=== PATIENT | female | born 1950 | race Caucasian/White ===

== ENCOUNTER 2016-10-22 15:56 | Outpatient (CLI) ==
[2016-10-22 16:24] LABS: H. PYLORI STOOL ANTIGEN NEGATIVE (NEGATIVE); H.PYLORI STOOL AG INTERNAL QC INTERNAL QC VALID
== END 2016-10-22 15:57 | disposition home or self-care (01) ==
LOC: LAB 15:56
PROVIDERS: ATTEND Internal Medicine
DX: R10.9 Unspecified abdominal pain (principal); R63.4 Abnormal weight loss; Z86.19 Personal history of other infectious and parasitic diseases
CPT/HCPCS: 87338; 87493

== ENCOUNTER 2018-04-08 08:28 | Outpatient (CLI) | payer OTHER ==
--- NOTE | 2018-04-08 09:29 | CT ---
EXAM: CT of the head without contrast History: Dizziness and blurred vision. Technique: Multiplanar CT images through the head were obtained without the administration of IV con trast Findings: The visualized paranasal sinuses and mastoid air cells are clear in general. No acute kimberly varial abnormalities. Intracranially, there is mild diffuse cerebral atrophy. No dominant mass or midline shift. No hydro cephalous. No acute intracranial hemorrhage or abnormal extraaxial fluid collections. Periventricul ar and subcortical white matter hypodensities. Impression: 1. No acute intracranial process. 2. Mild atrophy and mild chronic small vessel ischemic disease.
--- NOTE | 2018-04-08 09:30 | US ---
EXAM: Ultrasound bilateral carotid duplex. HISTORY: Dizziness. Blurred vision. COMPARISON: None available. TECHNIQUE: Multiple whitt scale and color Doppler images were obtained. FINDINGS: Please note that estimates of internal carotid artery stenoses are based upon NASCET crite linda. Right carotid: Calcified plaquing without 50% or greater stenosis. Peak systolic velocity measureme nt in the right internal carotid artery is 1.0 meters per second. Right internal to common carotid a rtery peak systolic velocity ratio measures 1.6. End diastolic velocity measurement in the right int ernal carotid artery is 0.3 meters per second. Flow in the right vertebral artery is antegrade. Left carotid: Calcified plaquing without 50% or greater stenosis. Peak systolic velocity measuremen t in the left internal carotid artery is 1.2 meters per second. Left internal to common carotid sharla ry peak systolic velocity ratio measures 1.7. End diastolic velocity measurement in the left interna l carotid artery measures 0.3 meters per second. Flow in the left vertebral artery is antegrade. IMPRESSION: 1. No evidence for 50% or greater stenosis in the right or left internal carotid artery. 2. Antegrade flow in both vertebral arteries.
== END 2018-04-08 08:29 | disposition home or self-care (01) ==
LOC: RAD 08:28
PROVIDERS: ATTEND Internal Medicine
DX: R42 Dizziness and giddiness (principal); H53.8 Other visual disturbances

== ENCOUNTER 2019-03-11 11:22 | Outpatient (CLI) ==
--- NOTE | 2019-03-11 16:11 | CT ---
EXAM: CT of the abdomen pelvis with and without contrast History: Upper abdominal pain. Technique: Multiplanar CT images through the abdomen and pelvis were obtained with and without the a dministration of IV contrast Findings: Lung bases are clear. No acute osseous abnormalities. Atherosclerotic vascular calcifications. No renal stones and no hydronephrosis. No ureteral calculi . Possible cholelithiasis. Calcified granulomas within the spleen. A few hepatic cysts with the la rgest measuring 2.7 cm in the inferior right hepatic lobe. Pancreas is unremarkable. Atheroscleroti c vascular calcifications. Adrenal glands are within normal limits. Mobile cecum seen in the right upper quadrant. The appendix is not seen but there are no secondary signs of appendicitis. No renal masses. Moderate colonic stool. Colonic diverticulosis. Mild short segment inflammation involving proximal sigmoid colon with associated wall thickening. No bladder wall thickening. 1.5 cm calcifi ed uterine fibroid. No perirectal inflammation. No free air and no ascites. No abdominal aortic an eurysm. No pathologically enlarged lymph nodes. Impression: 1. Short segment wall thickening of the proximal sigmoid colon probably due to early diverticulitis. Neoplastic wall thickening cannot be excluded and a colonoscopy will be needed. 2. Simple hepatic cysts. 3. Small calcified uterine fibroid.
== END 2019-03-11 11:23 | disposition home or self-care (01) ==
LOC: RAD 11:22
PROVIDERS: ATTEND Internal Medicine
DX: R10.13 Epigastric pain (principal)
CPT/HCPCS: 36415; 82565

== ENCOUNTER 2019-03-16 14:35 | Emergency (ER) ==
[2019-03-16 14:43] VITALS: BP 136/65; TEMP 97.2; BMI 25.0
[2019-03-16] MEDS ORDERED: SODIUM CHLORIDE 1,000 ML IV STA (15:18)
--- NOTE | 2019-03-16 16:35 | ED.PDOC ---
General ED Provider: Dr. LANDY LO Chief Complaint: Abdominal Pain Stated Complaint: ABDOMINAL PAIN EPIGASTRIC . WAS SEEN AT THE EMERGENCY ROOM 1 DAY AGO , THE PAIN HAS NOT IMPROVED . NEGATIVE VOMITING Time Seen by Physician: 14:45 (SEEN WITH NURSE 1 DAY AGO) Information Source: Patient Exam Limitations: No limitations Primary Care Provider: ODALYS CHENG Nursing and Triage Documentation Reviewed and Agree: Yes Does patient meet sepsis criteria?: No System Inflammatory Response Syndrome: Not Applicable Sepsis Protocol: For patient's 13 years and over: Temp is 96.8 and below OR 101 and greater Pulse >90 BPM Resp >20/minute Acutely Altered Mental Status Are patient's symptoms suggestive of a new infection, such as: -Pneumonia -Skin, Soft Tissue -Endocarditis -UTI -Bone, Joint Infection -Implantable Device -Acute Abdominal Infection -Wound Infection -Meningitis -Blood Stream Catheter Infection -Unknown GI Complaint Exam - Abdominal Pain Complaint/Exam Onset: Gradual Duration: 2 DAY Symptoms Are: Still present Timing: Intermittent Initial Severity: Moderate Current Severity: Moderate Location of Pain: Epigastric Radiates To: Denies: Chest, Back, Flank, LLQ, RLQ, Inguinal Character: Reports: Aching Aggravating: Reports: None Alleviating: Reports: None Associated Signs and Symptoms: Denies: Diaphoresis, Fever, Cough, Chest pain, Dizziness, Back pain, Constipation, Blood in stool, Dysuria, Urinary frequency, Decreased appetite Review of Systems - Review Of Systems Constitutional: Reports: No symptoms Eyes: Reports: No symptoms Ears, Nose, Mouth, Throat: Reports: No symptoms Respiratory: Reports: No symptoms Cardiac: Reports: No symptoms GI: Reports: Abdominal pain : Reports: No symptoms Musculoskeletal: Reports: No symptoms Skin: Reports: No symptoms Neurological: Reports: No symptoms Endocrine: Reports: No symptoms Hematologic/Lymphatic: Reports: No symptoms All Other Systems: Reviewed and Negative Past Medical History - Past Medical History Previously Healthy: Yes Endocrine: Reports: None Cardiovascular: Reports: None Respiratory: Reports: None Hematological: Reports: None Gastrointestinal: Reports: GERD Genitourinary: Reports: None Neuro/Psych: Reports: None Musculoskeletal: Reports: None Cancer: Reports: None Last Menstrual Period: years ago - Surgical History General Surgical History: Reports: None - Family History Family History: Reports: None - Social History Smoking Status: Never smoker Hx Substance Use: No Alcohol Screening: None - Immunizations Tetanus Shot up to Date: No Physical Exam - Physical Exam Appearance: Well-appearing, No pain distress, Well-nourished Eyes: KRISTINE, EOMI, Conjunctiva clear ENT: Ears normal, Nose normal, Oropharynx normal Respiratory: Airway patent, Breath sounds clear, Breath sounds equal, Respirations nonlabored Cardiovascular: RRR, Pulses normal, No rub, No murmur GI/: Soft, Nontender, No masses, Bowel sounds normal, No Organomegaly Musculoskeletal: Normal strength, ROM intact, No edema, No calf tenderness Skin: Warm, Dry, Normal color Neurological: Sensation intact, Motor intact, Reflexes intact, Cranial nerves intact, Alert, Oriented Psychiatric: Affect appropriate, Mood appropriate Critical Care Note - Critical Care Note Total Time (mins): 0 Course - Course Hematology/Chemistry: 03/16/19 15:25 03/16/19 15:25 Orders, Labs, Meds: Lab Review 03/16/19 03/16/19 15:25 15:25 WBC 5.23 RBC 4.31 Hgb 13.4 Hct 39.5 MCV 91.6 MCH 31.1 H MCHC 33.9 RDW Coeff of Tasia 12.4 Plt Count 233 Immature Gran % (Auto) 0.2 Neut % (Auto) 61.7 Lymph % (Auto) 30.6 [place] % (Auto) 6.5 Eos % (Auto) 0.4 Baso % (Auto) 0.6 Immature Gran # (Auto) 0.0 Neut # (Auto) 3.2 Lymph # (Auto) 1.6 [place] # (Auto) 0.3 L Eos # (Auto) 0.0 Baso # (Auto) 0.0 Sodium 140.3 Potassium 3.76 Chloride 98.8 Carbon Dioxide 30.9 H Anion Gap 14.36 BUN 9.5 Creatinine 0.81 Estimated GFR (MDRD) 70.00 BUN/Creatinine Ratio 11.72 Glucose 117.5 H Calcium 10.11 Total Bilirubin 0.51 AST 46.7 H ALT 33.1 Alkaline Phosphatase 90.0 Total Protein 8.13 Albumin 4.93 Globulin 3.20 Albumin/Globulin Ratio 1.54 Amylase 94.3 Lipase 57.3 Orders Category Date Time Status NPO REMINDER: IMAGING ONCE CARE 03/16/19 15:18 Active AMYLASE Stat LAB 03/16/19 15:25 Completed CBC W/ AUTO DIFF Stat LAB 03/16/19 15:25 Completed COMPREHENSIVE METABOLIC PANEL Stat LAB 03/16/19 15:25 Completed LIPASE Stat LAB 03/16/19 15:25 Completed Diphenhydramine Inj [Benadryl] MEDS 03/16/19 17:05 Discontinued 12.5 mg IVP ONCE STA Sodium Chloride 0.9% [Sodium Chloride] 1,000 ml MEDS 03/16/19 15:18 Active IV 125 mls/hr CT ABDOMEN/PELVIS W CONTRAST Stat RADS 03/16/19 15:17 Completed Medications Generic Name Dose Route Start Last Admin Trade Name Freq PRN Reason Stop Dose Admin Sodium Chloride 1,000 mls @ 125 mls/hr 03/16/19 15:18 03/16/19 15:25 Sodium Chloride IV 03/16/19 23:17 125 mls/hr .Q8H STA Administration Discontinued Medications Generic Name Dose Route Start Last Admin Trade Name Freq PRN Reason Stop Dose Admin Diphenhydramine HCl 12.5 mg 03/16/19 17:05 03/16/19 17:06 Benadryl IVP 03/16/19 17:06 12.5 mg ONCE STA Administration Vital Signs: Temp Pulse Resp BP Pulse Ox 03/16/19 14:35 97.2 F L 80 20 136/65 97 Departure - Departure Time of Disposition: 17:30 Disposition: HOME SELF-CARE Discharge Problem: Abdominal pain Instructions: Abdominal Pain (ED) Condition: Good Pt referred to PMD for follow-up: Yes IPMP verified?: No Additional Instructions: Please call your Family Physician as soon as possible to schedule a follow-up appointment. Allergies/Adverse Reactions: Allergies morphine Adverse Reaction (Verified 03/16/19 14:43) propoxyphene [From Darvon] Adverse Reaction (Verified 03/16/19 14:43) trimethobenzamide [From Tigan] Adverse Reaction (Verified 03/16/19 14:43) Home Medications: Ambulatory Orders Baclofen 20 mg PO BID 03/16/19 Lorazepam 0.5 mg PO DAILY 03/16/19 Melatonin 3 mg PO DAILY 03/16/19 Metronidazole [Flagyl] 500 mg PO TID 03/16/19 Ondansetron HCl [Zofran] 4 mg PO TID PRN 03/16/19 Pantoprazole Sodium [Protonix] 40 mg PO BID 03/16/19 Sucralfate [Carafate] 1 gm PO QID 03/16/19 Trazodone HCl 50 mg PO QID 03/16/19 Disposition Discussed With: Patient
[2019-03-16] MEDS ORDERED: BENADRYL IM STA (16:49)
[2019-03-16] MEDS ORDERED: BENADRYL IVP STA (17:05)
--- NOTE | 2019-03-16 17:21 | CT ---
EXAM: CT of the abdomen pelvis with contrast History: Epigastric abdominal pain. Comparison: CT abdomen pelvis 03/11/2019 Technique: Multiplanar CT images through the abdomen pelvis were obtained following administration o f IV contrast Findings: Lung bases are clear. No acute osseous abnormalities. No gallstones identified. Stable cyst within the inferior right hepatic lobe. Calcified granulomas within the spleen. Pancreas is unremarkable. Atherosclerotic vascular calcifications. Adrenal glan ds are normal. Kidneys are normal. No bladder wall thickening. Small calcified uterine fibroid aga in noted. No perirectal inflammation. Colonic diverticulosis again noted. No bowel obstruction. T he colon is moderately distended with fluid and stool. Impression: 1. No acute intra-abdominal or pelvic process. 2. Colonic diverticulosis. 3. Stable hepatic cyst. 4. The colon is moderately distended with fluid and stool.
== END 2019-03-16 17:45 | disposition home or self-care (01) ==
LOC: ED 14:35
DX: R10.13 Epigastric pain (principal); Z79.899 Other long term (current) drug therapy
CPT/HCPCS: 36415; 80053; 82150; 83690; 85025; 96361; 96374; 99283